=== PATIENT | female | born 1975 | race Caucasian/White ===

== ENCOUNTER 2022-03-11 21:04 | Inpatient (IN) | payer BC ==
[~2022-03-11] VITALS: Ht 162.6 cm; Wt 170.6 kg
--- NOTE | 2022-03-11 21:45 | NUR ---
Pt to ER at this time w/ c/o SOB on exertion, BLE swelling with nonpitting edema, body aches, chills, dry cough, congestion, and loss of taste and smell x "last few days". Pt denies fevers. Respirations even and unlabored while resting. Ambulates with strong steady gait, nonproductive cough.
[2022-03-11 21:51] VITALS: BP_SYST 150
--- NOTE | 2022-03-11 21:54 | NUR ---
Pt has expiratory wheezing to bilateral lower lobes
--- NOTE | 2022-03-11 22:05 | NUR ---
PT BIB , PT PRESENTED TO ER WITH LOWER EXTREMETY PAIN AND ADEMA FOR THE PAST WEEK. PT ALSO HAS COMPLAINT OF SOB, COUGH, NON-FEBRILE. PT IN BED WITH BED LOWERED, LOCKED AND RAILS UP. WILL CONTINUE TO MONITOR
--- NOTE | 2022-03-11 22:10 | NUR ---
ER Dr.Dela Santos examining patient in the tent.
--- NOTE | 2022-03-11 22:40 | NUR ---
Patient to ER bed 8 to gown for evaluation. Side rails up. Report given to Dennis ECHOLS by [place] ECHOLS.
[2022-03-11 23:37] LABS: BASOPHILS # (AUTO) 0.2 K/uL (0.0-0.2); BASOPHILS % (AUTO) 1.9 % (0.0-2.0); EOSINOPHILS # (AUTO) 0.4 K/uL (0.0-0.4); EOSINOPHILS % (AUTO) 4.2 % (0.0-4.0); HEMOGLOBIN 13.3 g/dL (12.0-16.0); LYMPHOCYTES # (AUTO) 1.2 K/uL (1.0-5.5); LYMPHOCYTES % (AUTO) 12.3 % (20.5-51.5); MEAN CORPUSCULAR HEMOGLOBIN 29 pg (27-31); MEAN CORPUSCULAR HGB CONC 33 % (32-36); MEAN CORPUSCULAR VOLUME 87 fL (79.0-98.0); MONOCYTES # (AUTO) 0.5 K/uL (0.0-1.0); MONOCYTES % (AUTO) 5.4 % (1.7-9.3); NEUTROPHILS # (AUTO) 7.4 K/uL (1.8-7.7); NEUTROPHILS % (AUTO) 76.2 % (40.0-70.0); PLATELET COUNT (AUTO) 246 K/uL (130-430); RED BLOOD CELL COUNT(AUTO) 4.58 MIL/uL (4.2-6.2); WHITE BLOOD COUNT (AUTO) 9.7 K/uL (4.8-10.8)
[2022-03-11 23:45] LABS: ANION GAP 5 (5-15); CALCIUM 8.5 mg/dL (8.4-11.0); CHLORIDE 100 mmol/L (98-107); CREATININE 0.87 mg/dL (0.55-1.30); GLUCOSE 124 mg/dL (70-99); POTASSIUM 3.6 mmol/L (3.5-5.1); SODIUM SERUM 136 mmol/L (136-145); UREA NITROGEN, BLOOD 8 mg/dL (8-21)
[2022-03-11 23:54] LABS: ALANINE AMINOTRANSFERASE 27 U/L (12-78); ALBUMIN 3.1 g/dL (3.4-4.8); ASPARTATE AMINOTRANSFERASE 13 U/L (10-37); TOTAL BILIRUBIN 0.4 mg/dL (0.0-1.0)
[2022-03-11 23:59] LABS: GFR AFRICAN AMERICAN 90 mL/min (>90)
[2022-03-12] MEDS ORDERED: FUROSEMIDE 40 MG/4 ML VIAL IVP ONE (00:30)
--- NOTE | 2022-03-12 01:19 | NUR ---
Admit bed requested Patient will be admitted to care of Dr.RIZVI Diallo Admitted to MED SURG unit. Diagnosis CHF,FLUID OVERLOAD Inpatient (Yes or No) NO Observation (Yes or No) YES Orientation concerns or request close to nursing station (Yes or No) NO Covid Status NEGATIVE On vent or bipap NO Isolation requirements NO Needs a sitter NO From Home (Yes or if No enter name of facility) YES Requires Dialysis (Yes or No) NO Med Rec Completed (Yes of No) PENDING
--- NOTE | 2022-03-12 02:18 | NUR ---
PLACED 2L NASAL CANULA, PT SAT DROPS WHEN SHE FALLS ASLEEP.
--- NOTE | 2022-03-12 02:19 | NUR ---
PT STATES SHE TAKES NO DAILY MEDS
--- NOTE | 2022-03-12 03:00 | NUR ---
Patient will be admitted to care of DR CASTRO. Admitted to unit. Will go to room . Belongings list completed. Complete and up to date summary report printed. SBAR report to be given at bedside with opportunity for questions.
[2022-03-12 03:38] VITALS: BP_SYST 129
--- NOTE | 2022-03-12 03:45 | NUR ---
Received patient from ER, report given by ER nurse Dennis. Received a 46 years old pleasant female from Home to ER then inpatient medsurg unit. Complaining of cough, generalize body pain, SOB, bilateral lower extremity pain, non pitting edema. Diagnosed with Fluid overload and CHF. No medical history given by the patient. No known allergy, Full code status. Under the care of Dr. Wood. 2mg sodium diet. Patient was given Laxis 60mg IV push at the ER. On continuous oxygen at 2LM with O2 saturation of 95%. Patient able to ambulate without assistance. IV access on the Right Hand 22 gauge on saline lock. Belonging list done. Vital signs stable. Called MD for admission. waiting for response.
[2022-03-12 04:00] VITALS: BP_SYST 129
[2022-03-12 07:51] VITALS: BP_SYST 139
[2022-03-12] MEDS ORDERED: FUROSEMIDE 40 MG/4 ML VIAL IVP SCH (09:00)
--- NOTE | 2022-03-12 09:57 | NUR ---
pt denies any allergy.
[2022-03-12] MEDS: ALBUTEROL SULFATE 0.083% 2.5 MG/3 ML VIAL.NEB INH SCH ×3 (11:00→21:18)
--- NOTE | 2022-03-12 11:09 | NUR ---
CONSULTATION PAGED REASON FOR CONSULTATION:CHF WAS CONSULT CALLED?Y -PERSON WHO WAS NOTIFIED:EXCHANGE CONSULTING PHYSICIAN:NALINI CASANOVA COMMUNICATIONS WRITER SPECIALTY:CARDIO COMMUNICATIONS WRITER PHONE NUMBER:[phone] REQUESTING PHYSICIAN:YULIET CISNEROS
[2022-03-12] MEDS: cefTRIAXone 1 GM in D5W 50 ML IV SCH (12:31)
[2022-03-12 16:00] VITALS: BP_SYST 140
[2022-03-12 16:07] VITALS: BP_SYST 140
--- NOTE | 2022-03-12 16:09 | NUR ---
requested for breathing treatment from RT Donna. pt has audible wheezing and coughing. will cont to monitor.
[2022-03-12] MEDS ORDERED: METHYLPREDNISOLONE SOD SUCC 40 MG/ML VIAL IVP ONE (18:45)
[2022-03-12 20:00] VITALS: BP_SYST 123
[2022-03-12] MEDS: FUROSEMIDE 20 MG/2 ML VIAL IVP SCH (21:47)
[2022-03-13] VITALS: BP_SYST 131
[2022-03-13] MEDS: ALBUTEROL SULFATE 0.083% 2.5 MG/3 ML VIAL.NEB INH SCH ×7 (05:38→23:00)
--- NOTE | 2022-03-13 07:15 | NUR ---
received report from endorsing night baker RN for continuity of care, patient lying on bed vital signs; blood pressure 120/75,pulse rate 75, oxygen saturation 94, temperature of 96.2. no signs of acuite distress noted at this time, will continue to monitor
[2022-03-13] MEDS: METHYLPREDNISOLONE SOD SUCC 40 MG/ML VIAL IVP SCH ×2 (10:02→23:17)
[2022-03-13] MEDS: FUROSEMIDE 20 MG/2 ML VIAL IVP SCH ×2 (10:03→23:18)
--- NOTE | 2022-03-13 10:18 | NUR ---
Logo Admission Assessment - Care Management Last Saved By: Dali Lackey Last Saved On: 03/13/2022 10:18 AM (PT) Created By: Dali Lackey Created On: 03/13/2022 10:17 AM (PT) Patient Information Patient Name: KASEY LARA [address]: [address] [place] [address] [place] [address] SSN: : 1975 (age 46 years) Gender: Female Alternative Phone: Marital Status: Race: Race 2: Ethnicity: Not or or Kinyarwanda Origin Ethnicity 2: Patient's Information Who was Interviewed? Answers: Other - Specify (Caregiver, Family, Friend etc) Notes: spouse What language does the patient speak? Answers: Syriac Admitting Facility Answers: *[facility] [[id number]] Admitting Diagnosis SOB, LLE swelling Advanced Care Planning (check all that apply) Answers: Does the patient have a POLST? If Yes, was it shared with Hospitalist/Attending? Notes: no Advanced Directives? Notes: no Healthcare DPOA? If Yes - Name of DPOA/Relation Notes: mo Additional Patient Notes Covid vaccine: x2 History and Prior Level of Function DME--PRIOR to Admission: Answers: No DME Cognitive--PRIOR to Admission: Answers: Alert & Orientated Home Setting--PRIOR to Admission: Answers: Private Home Notes: [facility] , 1 step lives w/ & parents Was patient receiving Home Health Services prior to Admission? Answers: No Potential Barriers to Discharge Anticipated Discharge Disposition Answers: Home Does the patient have any potential barriers to DC? (indicate barrier & plan to address) Answers: NO, anticipate DC to previous living situations, no additional services anticipated Signature Signature: Signature Date Signed: 03/13/2022 10:18 AM (PT) Signed By: Dali Lackey Position: Inpatient Fac Engineer Pager Number: Allscripts Generated (Scan) Page 1 of Copyright 2021 [employer]. [Production([id number])]
[2022-03-13 12:30] VITALS: BP_SYST 122
[2022-03-13] MEDS: cefTRIAXone 1 GM in D5W 50 ML IV SCH (12:58)
--- NOTE | 2022-03-13 14:12 | NUR ---
CONSULTATION PAGED/CALLED Reason for Consultation: [] SOB Person Who was Notified: [] COURT Consulting Physician: [] DR WHITING Roller Skate Assembler Specialty: [] PULMO Ordering Physician: [] DR HOROWITZ
[2022-03-13 16:00] VITALS: BP_SYST 127
--- NOTE | 2022-03-13 19:30 | NUR ---
RCEIVED REPORT ON PATIENT FROM AUG, RN, ASSUMED CARE AND STARTED ASSESSMENT.
[2022-03-13 20:00] VITALS: BP_SYST 152
[2022-03-13] MEDS: guaiFENesin ER 600 MG TAB PO SCH (23:18)
[2022-03-14] MEDS: ALBUTEROL SULFATE 0.083% 2.5 MG/3 ML VIAL.NEB INH SCH ×5 (03:00→21:02)
[2022-03-14 06:45] LABS: BASOPHILS % (AUTO) 0.1 % (0.0-2.0); HEMATOCRIT 42.9 % (36-48); HEMOGLOBIN 14.2 g/dL (12.0-16.0); LYMPHOCYTES # (AUTO) 0.9 K/uL (1.0-5.5); MEAN CORPUSCULAR HEMOGLOBIN 29 pg (27-31); MEAN CORPUSCULAR HGB CONC 33 % (32-36); MEAN CORPUSCULAR VOLUME 88 fL (79.0-98.0); MONOCYTES # (AUTO) 0.2 K/uL (0.0-1.0); MONOCYTES % (AUTO) 1.9 % (1.7-9.3); NEUTROPHILS # (AUTO) 9.9 K/uL (1.8-7.7); PLATELET COUNT (AUTO) 270 K/uL (130-430); RED CELL DISTRIBUTION WIDTH 14.1 % (9.0-15.0)
[2022-03-14 07:02] LABS: CALCIUM 8.9 mg/dL (8.4-11.0); CREATININE 0.78 mg/dL (0.55-1.30); POTASSIUM 4.4 mmol/L (3.5-5.1)
--- NOTE | 2022-03-14 07:09 | NUR ---
REPORT GIVEN TO KINZA CAMILO, AND CARE WAS TURNED OVER TO HIM.
[2022-03-14 08:00] VITALS: BP_SYST 121
[2022-03-14] MEDS: FUROSEMIDE 20 MG/2 ML VIAL IVP SCH ×2 (10:19→20:45)
[2022-03-14] MEDS: METHYLPREDNISOLONE SOD SUCC 40 MG/ML VIAL IVP SCH ×2 (10:24→20:44)
[2022-03-14] MEDS: guaiFENesin ER 600 MG TAB PO SCH ×2 (10:28→20:43)
[2022-03-14] MEDS: cefTRIAXone 1 GM in D5W 50 ML IV SCH (10:29)
[2022-03-14 12:00] VITALS: BP_SYST 121
[2022-03-14 16:00] VITALS: BP_SYST 120
--- NOTE | 2022-03-14 16:44 | NUR ---
Dietitian Recommendations * Cardiac diet GUNNER, RD Please refer to Nutrition Assessment for details. Addendum: 03/14/22 at [address] Amended: Links added.
[2022-03-14 20:00] VITALS: BP_SYST 129
--- NOTE | 2022-03-14 20:00 | NUR ---
OPENING NOTE Pt in room with family at bedside. Pt still Complaining of cough, SOB, left lower extremity pain, non pitting edema. Diagnosed with Fluid overload and CHF. On r/a with O2 saturation of 97%. Patient able to ambulate without assistance. IV access on the Right Hand 22 gauge on saline lock. Pt AOX4 all safety measure in place and will continue to monitor.
--- NOTE | 2022-03-14 22:26 | NUR ---
RT PLACED PT ON BIPAP 12/02 35% BACK UP RATE OF 16 @ [address] ORDER[address] PT TOLERATING FAIRLY. SPO2 99%. NO RESP. DISTRESS NOTED
[2022-03-14] MEDS: IPRATROPIUM/ALBUTEROL SULFATE 3 ML AMPUL.NEB (DUONEB) INH SCH (23:47)
--- NOTE | 2022-03-14 23:54 | NUR ---
RT @2340 PT NO LONGER WANTED TO WEAR THE BIPAP DUE TO IT BEING UNCOMFORTABLE, NOT LETTING HER SLEEP, PRESSURE TOO HIGH, AND AFRAID OF COUGHING AND CHOKING. PT PUT ON 1L NC W/ BUBBLE HUMIDIFIER. SP02 97%.
[2022-03-15] MEDS: IPRATROPIUM/ALBUTEROL SULFATE 3 ML AMPUL.NEB (DUONEB) INH SCH ×2 (03:50→09:44)
[2022-03-15 08:00] VITALS: BP_SYST 127
[2022-03-15] MEDS: guaiFENesin ER 600 MG TAB PO SCH (08:16)
[2022-03-15] MEDS ORDERED: FURO-150 PO ×2 (08:59→20:15)
[2022-03-15] MEDS ORDERED: GUAI600T45 PO (08:59)
[2022-03-15] MEDS: METHYLPREDNISOLONE SOD SUCC 40 MG/ML VIAL IVP SCH (09:50)
[2022-03-15] MEDS: FUROSEMIDE 20 MG/2 ML VIAL IVP SCH (09:51)
[2022-03-15] MEDS: cefTRIAXone 1 GM in D5W 50 ML IV SCH (10:07)
[2022-03-15] MEDS ORDERED: PRED10TA PO (10:48)
[2022-03-15] MEDS ORDERED: PRED5SOL PO ×2 (10:48→20:19)
--- NOTE | 2022-03-15 12:12 | NUR ---
AMBULATING WITHOUT OXYGEN Patient ambulated around the unit without oxygen, oxygen saturation between 90-93%. Patient's breathing was non labored and she denies any shortness of breath or dizziness.
[2022-03-15 12:59] VITALS: BP_SYST 127
--- NOTE | 2022-03-15 13:00 | NUR ---
PAGETunde Wood regarding discharge orders. Unable to finalize patient's medications. Awaiting call back.
[2022-03-15 16:00] VITALS: BP_SYST 120
--- NOTE | 2022-03-15 16:31 | NUR ---
PUT ANOTHER CALL TO THE DR Antoinette CASTRO, RE: HOME MED RECON. LEFT A VOICE MESSAGE ON HIS CELL, 2ND CALL.
--- NOTE | 2022-03-15 16:37 | NUR ---
ANOTHER CALL FOR DR CASTRO, RE: MED DISCHARGE ORDER FOR HOME. SPOKE TO LINDSEY.
--- NOTE | 2022-03-15 18:41 | NUR ---
CLOSING NOTE Patient in bed resting with family at bedside. Patient has been on room air and oxygenating 95-97%. Oxygenation when ambulating has been 93%. Patient aware that she will be discharged this evening once we are able to finalize her discharge medications. Educated patient regarding diet and lifestyle changes, patient verbalized understanding. All needs met at this time and safety checks made. Will endorse to shift manager nurse.
--- NOTE | 2022-03-15 19:49 | NUR ---
CALLED DR. CASTRO AND ASKED HIM IF HE CALLED THE PHARMACY FOR THE PRESCRIPTION OF THE PATIENT FOR DISCHARGE. SAID THAT HE CALLED THE PHARMACY ALREADY. CALLED [facility] AND INQUIRED IF MD PHONE IN THE PRESCRIPTION AND THE PHARMACIST SAID THAT THERE WAS NOT ANY PRESCRIPTION CALLED IN FOR THE PATIENT. CALLED DR. CASTRO AGAIN AND TOLD HIM THAT PHARMACY HAVE NOT RECEIVED HIS CALLED IN PRESCRIPTION. SAID THAT HE WILL TRY TO PHONE OR SEND THE PRESCRIPTION AGAIN. WILL CALL PHARMACY AGAIN AND VERIFY.
[2022-03-15] MEDS ORDERED: mucinex PO (20:17)
[2022-03-15] MEDS ORDERED: PRED20TA PO (20:20)
--- NOTE | 2022-03-15 22:30 | NUR ---
pt.d/c home.;abid paged and apprised that the e-scibed did not transfer to pt's pharmacy.dr harrison telephoned the pharmacist. prescribed the medications.i telphoned the phramcy to confirm the prescriptions.per the pharmacist had spoken to her and prescribed the medications.family was able to attend to the pick-up.pt.requested 's note:excusal from work pt.was provided w sdch note:i was apprised the sdch note is valid x2 days an pt. is to request dr's note from the attending md.for the additional time off.pt.had inquired if a special library librarian had presented [facility] w diet guidelines.i could not locate special library librarian guidelines.i apprised the pt.to f/u w pmd for a referral for special library librarian/cradle slide maker.all pt.pertenances accounted for and sent w pt.
== END 2022-03-15 22:30 | disposition home or self-care (01) | DRG 641 ==
LOC: SED 21:04 → SMU 03-12 01:17 → OBSVTOIN 03-14 16:10
PROVIDERS: ADMIT Internal Medicine; ATTEND Internal Medicine
DX: E87.70 Fluid overload, unspecified (principal); I16.9 Hypertensive crisis, unspecified; Z68.44 Body mass index [BMI] 60.0-69.9, adult; I11.0 Hypertensive heart disease with heart failure; Z20.822 Contact with and (suspected) exposure to COVID-19; E78.5 Hyperlipidemia, unspecified; E66.01 Morbid (severe) obesity due to excess calories; G47.30 Sleep apnea, unspecified; J44.9 Chronic obstructive pulmonary disease, unspecified; I50.9 Heart failure, unspecified; R06.03 Acute respiratory distress
CPT/HCPCS: 36415; 36600; 71045; 80048; 80053; 82803-TC; 82947; 83036; 83880; 84484; 85025; 85379; 93005; 93306; 93970; 94640; 94660; 94760; G0378; J0696; J1030; J1940; J7060; J7613

== ENCOUNTER 2022-09-16 06:45 | Day surgery (SDC) | payer BC ==
[~2022-09-16] VITALS: Ht 162.6 cm; Wt 173.8 kg
[~2022-09-16 06:45] MED LIST: FURO-150 PO; GUAI600T45 PO; PRED10TA PO; PRED20TA PO; PRED5SOL PO; mucinex PO
[2022-09-16 07:10] LABS: HCG,QUAL RESULT NEGATIVE (NEGATIVE)
[2022-09-16] MEDS ORDERED: MIDAZOLAM HCL 5 MG/5 ML VIAL ONE (07:37)
[2022-09-16] MEDS ORDERED: MEPERIDINE HCL/PF 25 MG/ML DISP.SYRIN ONE (07:37)
[2022-09-16] MEDS ORDERED: SIMETHICONE 40 MG/0.6 ML ML ONE (07:37)
[2022-09-16 15:03] VITALS: BP_SYST 113
== END 2022-09-16 10:15 | disposition home or self-care (01) ==
LOC: SOR 06:45 → SMU 06:47 → SOR 10:15
PROVIDERS: ATTEND Internal Medicine Gastroenterology
DX: E66.01 Morbid (severe) obesity due to excess calories (principal); K29.50 Unspecified chronic gastritis without bleeding; E11.9 Type 2 diabetes mellitus without complications; I11.0 Hypertensive heart disease with heart failure; E78.00 Pure hypercholesterolemia, unspecified; I50.9 Heart failure, unspecified; G47.30 Sleep apnea, unspecified; Z87.891 Personal history of nicotine dependence; Z68.44 Body mass index [BMI] 60.0-69.9, adult; Z79.899 Other long term (current) drug therapy; Z20.822 Contact with and (suspected) exposure to COVID-19
CPT/HCPCS: 43239; 96365; 87426; 87081; 84703; 36415; 88305; 88312; 88313; G0378; J2250; J2175